=== PATIENT | male | born 1945 | race Caucasian/White ===

== ENCOUNTER → 2017-11-03 10:40 | Outpatient (CLI) | payer MEDICARE, SELFPAY ==
[2017-11-03 13:45] VITALS: BP 133/79; PULSE 74; RESP 16; TEMP 36.4; O2SAT 95; BMI 29.4
--- NOTE | 2017-11-03 13:58 | SDCEKG_ITS ---
Test Reason : Blood Pressure : / mmHG Vent. Rate : 072 BPM Atrial Rate : 072 BPM P-R Int : 166 ms QRS Dur : 108 ms QT Int : 414 ms P-R-T Axes : 018 032 032 degrees QTc Int : 453 ms Normal sinus rhythm Normal ECG Confirmed by GILBERT BAGLEY MD ([id number]), news video editor COLE ANN ([id number]) on 11/05/2017 12:56:32 PM Referred By: Bj Nice Confirmed By:GILBERT BAGLEY MD
--- NOTE | 2017-11-03 14:30 | RAD_ITS ---
STUDY: X-RAY CHEST REASON FOR EXAM: Male, 71 years old. Preoperative evaluation. Dyspnea and shortness of breath. TECHNIQUE: PA and lateral views of the chest. COMPARISON: None. FINDINGS: Hyperinflation. Increased linear markings at the lung bases suggestive of either basilar atelectasis and/or scarring. There is blunting of the left costo phrenic angle. Normal size heart. Normal mediastinum and arnoldo. Normal visualized pulmonary arteries. There is atherosclerotic calcification of the aortic arch with tortuosity. There are diffuse degenerative changes of the visualized thoracic spine. Normal visualized ribs, clavicles, and shoulders. There is no demonstrated abnormality of the visualized soft tissue structures of the upper abdomen. RAD/Chest PA and Lateral IMPRESSION: Hyperinflation. Increased markings at the lung bases suggestive of linear atelectasis and/or scarring with blunting of left costophrenic angle. Electronically Signed: Brody Steiner MD at 14:59 EST Tel [phone], Service support ,
[2017-11-03 14:33] LABS: Hematocrit 46.9 % (40-54); Hemoglobin 15.8 g/dl (13.0-16.5); Mean Corp Hgb Conc 33.7 g/gl (32-36); Mean Corpuscular Hgb 29.4 pg (27.0-32.0); Mean Corpuscular Volume 87.3 fL (80-94); Mean Platelet Vol. 9.1 fl (6.2-12.0); Platelet Count 298 K/mm3 (150-450); RBC Distribution Width CV 13.9 % (11.6-14.6); RBC Distribution Width SD 44.3 fl (35.1-43.9); Red Blood Count 5.37 M/mm3 (4.6-6.2); White Blood Count 7.2 K/mm3 (4.4-11.0)
[2017-11-03 14:34] LABS: Scan Indicated on CBC? Y/N NO
[2017-11-03 14:35] LABS: Prothrombin Time (Protime)PT. 12.6 SECONDS (11.7-14.9)
[2017-11-03 14:43] LABS: AST(SGOT) 13 U/L (15-37); Alanine Aminotransfer ALT/SGPT 23 U/L (16-61); Alkaline Phosphatase 88 U/L (45-117); Anion Gap 10 (5-15); BUN 10 mg/dL (7-18); BUN/Creat Ratio 16.7 RATIO (10-20); Bilirubin, Direct 0.09 mg/dL (0.00-0.30); Calcium,Total 8.8 mg/dL (8.5-10.1); Chloride 97 mmol/L (98-107); EST Glomerular Filtration Rate 141 mL/min (>60); Est Glom Filt Rate - Afr Amer 171 mL/min (>60); Estimated Creatinine Clearance 73.29 ml/min; Globulin 4.1 g/dL (2.2-4.2); Glucose 136 mg/dL (74-106); Potassium 3.8 mmol/L (3.5-5.1); Protein, Total 7.1 g/dL (6.4-8.2); Sodium Level 134 mmol/L (136-145)
[2017-11-03 15:38] LABS: Hemoglobin A1c 7.1 % (4.2-6.3)
--- NOTE | 2017-11-06 11:09 | CASEMGMT ---
SARKIS OSEGUERA called and spoke with patient regarding discharge needs after upcoming surgery. Patient states that his plan is to go to [facility] after surgery but states that his surgery has been postponed due to him having bronchitis at this time. SARKIS OSEGUERA will follow-up with patient when surgery is rescheduled.
== END ==
PROVIDERS: Anesthesiology; Visit Provider Orthopaedic Surgery
DX: Z01.818 Encounter for other preprocedural examination (principal)
CPT/HCPCS: 80048; 80076; 83036; 85027; 85610; 85730; 87081

== ENCOUNTER 2017-12-08 08:54 | Inpatient (IN) | payer MEDICARE, SELFPAY ==
[2017-12-01 14:09] VITALS: BP 126/64; PULSE 71; RESP 16; TEMP 36.6; O2SAT 93; BMI 29.4
[2017-12-01 15:36] LABS: Allen Test POS; Base Excess -2 mmol/L (-2 to +2); Bicarbonate 22.7 mmol/L (22-26); Blood Gas Specimen Type ART; O2 Delivery Device Room Air; PO2 65 mmHG (75-100); SITE L Radial; SO2 93 % (95-99); Time Given 1502; Total Carbon Dioxide 24 mmol/L; pCO2 35.5 mmHg (35-45); pH 7.41 (7.35-7.45)
--- NOTE | 2017-12-01 15:40 | RAD_ITS ---
STUDY: X-RAY CHEST REASON FOR EXAM: Male, 72 years old. Pre-op evaluation prior to left-sided knee surgery. TECHNIQUE: PA and lateral views of the chest. COMPARISON: Chest radiograph dated November 03, 2017. FINDINGS: There is hyperinflation of the lungs consistent with chronic obstructive lung disease (COPD). Small calcifications are visible at the left lung base, similar to the previous study. This may be the result of granulomas. Curvilinear opacities are visible at the right lung base with possible calcified nodule at the right lateral costophrenic angle. There is no demonstrated pleural abnormality. Normal size heart. There are calcified left-sided hilar lymph nodes. Normal visualized pulmonary arteries. There is atherosclerotic calcification of the aortic arch with tortuosity. There is demineralization of the osseous structures. There is multilevel thoracic spondylosis. There has been partial resection of the distal right clavicle. There are degenerative changes of the left shoulder. Deformity of the anterior ribs may be the result of old rib fractures. There is no demonstrated abnormality of the visualized soft tissue structures of the upper abdomen. RAD/Chest PA and Lateral IMPRESSION: COPD without radiographic evidence of acute cardiopulmonary disease. Electronically Signed: Allie Naik MD at 16:53 EDT , Service support ,
[2017-12-08] VITALS (11 sets, daily range): BP systolic 103–124; BP diastolic 54–74; PULSE 61–72; RESP 16–161; TEMP 35.9–36.6; O2SAT 83–97; BMI 29.4
--- NOTE | 2017-12-08 | KNEE_PTH ---
PATIENT: WILLIE TERRY LOC: MS3 U#:[id number] AGE/SX: 72/M ROOM: MS319 RE12/08/[address]: Dr. Martha Foss MD : 1945 BED: 1 DIS: 12/10/2017 SPEC #: [id number] RECD: 12/08/17 14:57 STATUS: JANIS REAdarsh #: [id number] SAUL: 12/08/17 00:[address]: Bj Nice DEPT: SURGICAL PATHOLOGY RECD BY: Valentin Diaz ENTERED: 12/08/17 14:57 SP TYPE: TOTAL KNEE OTHR DR: Out of Town Doctor Tissues: Knee, NOS Procedures: Decalcification bone/plaque Surgery Specimen Level IV HEADER OPERATION: Total knee replacement PRE-OP DIAGNOSIS: Left knee osteoarthritis TISSUE SUBMITTED: Debrided tissue and bone, left knee MICROSCOPIC DIAGNOSIS Bone and soft tissue of left knee, total knee resection: Severe degenerative joint disease. Mild synovial hyperplasia with associated crystalline debris. AM:lisa 12/11/17 MICROSCOPIC DESCRIPTION Slides are reviewed. GROSS DESCRIPTION Received is one container designated debrided tissue and bone left knee. The specimen consists of multiple fragments of huitron-yellow bone measuring in aggregate 13 x 11 x 4 cm. Also in the specimen container are multiple fragments of yellow-white soft tissue measuring in aggregate 6 x 5 x 2 cm. A number of bony fragments contain articular surfaces consistent with tibial plateau and femoral condyle and displaying prominent osteophyte formation, eburnation, and bone erosion. Manager Service Desk sections are submitted in two cassettes as follows: 1 - soft tissue, 2 - bone after decalcification. / SJ:lisa 12/08/17 TC: 5 [facility]: [id number], [id number]
[2017-12-08 10:36] LABS: Bedside Glucose 217 mg/dL (70-110)
--- NOTE | 2017-12-08 11:34 | OP.PN_ITS ---
Immediate Post-Op Note Date of Procedure: 12/08/17 Primary Surgeon/Physician: Bj Nice DO cargo services coordinator: Norma Melo Pre-Operative Diagnosis: left knee oa Post-Operative Diagnosis: same as above Surgery/Procedure Performed:: left tka--james triathhermann Description of Surgical Findings:: seedictation Estimated Blood Loss: 50 Specimen's removed: bone cuts Type of Anesthesia:: Spinal ASA Class: ASA3 Severe Disease - Admit VTE Documentation VTE Present on Admission: No VTE Mechan Device Prophylaxis: SCD's, Knee High [place] Hose VTE Pharm Prophylaxis ordered?: Yes
[2017-12-08] MEDS: Cefazolin 2 GM in 0.9% Normal Saline 100 ML IV (11:35)
--- NOTE | 2017-12-08 13:37 | PCM.OPRPT ---
Report of Operation Date of Procedure: 12/08/17 Pre-Operative Diagnosis: left knee oa Post-Operative Diagnosis: same as above Surgery/Procedure Performed:: left tka--vicenta jimbo Description of Surgical Findings:: 72-year-old male with recalcitrant left knee pain that failed nonoperative management to include NSAIDs activity modifications physical therapy and injections. Patient had tricompartmental arthrosis on plain from radiographs and elected for operative intervention having failed conservative measures. Patient was met in the holding area over the left lower extremity was marked and identified by the with surgeon. Patient was taken the operating room in satisfactory condition with somewhat to place to identify patient operative procedure and limb. Patient received 2 g Ancef and 1 g of TXA. He had a well-placed tourniquet left proximal thigh was then prepped and draped in usual fashion after successful spinal anesthesia. Left lower extremity was elevated Esmarch used for exsanguination and tourniquet was increased to 250 mmHg for roughly 70 minutes. Patient had a standard midline incision with a subsequent medial parapatellar approach. Patient had a large return effusion. Patient had gross tricompartmental arthrosis. At that point time anterior fat pad resection and posterior medial release were undertaken secondary to varus deformity. Due to the patient having a small flexion contracture elected to take 10 mm off the distal femur. The intramedullary guide was introduced we took 10 mm using a 6? valgus cut for our distal femoral cut. Due to the significant thickness of his patella which was roughly 24 mm in overall dimension I elected to resect the patella as well. We took him down to a size 14 patellar thickness. This was done using standard technique. Then turned our attention to the tibia. We set the guide appropriately for a CR component. We took roughly 4 mm off the medial side. Using standard technique. Upon completion the remnant menisci were removed and the posterior lateral and posterior anterior lateral geniculate vessels were cauterized. 9 mm spacer was introduced. With excellent mechanical alignment. We then turned our attention to sizing. The patient sized to a 6 femur. 6 femoral cutting guide was placed in standard cuts were performed. We then placed our trial components using standard technique with a 9 mm spacer. We had no flexion and extension gaps could be appreciated excellent alignment full extension the no mechanical instability at 0 3090? of flexion extension and varus valgus stress. Keel holes were placed for the trial component of the femur. It was retracted. We then seated the tibia using standard technique and also placed our standard keel punch and secondary punch in anticipation of using press-fit components to the excellent bone quality of the patient. At that point time we returned to the patella to confirm overall thickness and alignment. Patient again sized with 38 patella button. Appropriate drill holes were placed. We then copiously irrigated the joint in anticipation of placing our components. The patient was then injected with 50 cc of of the joint cocktail around the yee-articular soft tissues. We subsequently introduced our tibial tray press-fit using standard technique. Press-fit our femoral component again using standard technique. And then subsequent performed cementing technique to the patella. The cement was allowed to cure. During the curing process a 9 mm spacer was introduced and showed again good mechanical alignment. We elected to then see a 9 mm CS Emily using standard technique. After cement curing the wound was copiously irrigated one additional time and then closed in layer technique with the distal two thirds closed with the knee in 30? of knee flexion using kidqps-yd-tisdt technique with #1 Vicryl. The proximal one third closed in full extension. We then closed the subcu tissues with 2-0 Vicryl running subicular Monocryl and Dermabond. Silverlon dressing was placed in 30? of knee flexion. The tourniquet was let down at 70 minutes during final closure. I was scrubbed and reviewed all time during our procedure. There is no drains or complications. Implants included Vicenta triathlon press-fit 6 tibia 6 femur 9 PS Emily and a 38 patella button. Patient be admitted for for 24 hours of IV antibiotics appropriate IV and p.o. pain medication DVT prophylaxis to include SCDs teds and 325 mg of aspirin p.o. twice daily with GI prophylaxis. Any major issues please contact me. corporate safety coordinator: Norma Melo Type of Anesthesia:: Spinal Specimen's removed: bone cuts Estimated Blood Loss (mL): 50 Grafts/Implants Used: Striker triathlon 6, 6, 9 CS, 38 - Complications none - Admit VTE Documentation VTE Present on Admission: No VTE Mechan Device Prophylaxis: SCD's, Knee High NJ Hose VTE Pharm Prophylaxis ordered?: Yes
[2017-12-08 14:06] LABS: Bedside Glucose 166 mg/dL (70-110)
--- NOTE | 2017-12-08 14:17 | RAD_ITS ---
STUDY: X-RAY - LEFT KNEE REASON FOR EXAM: Male, 72 years old. Total knee replacement. TECHNIQUE: AP and lateral view(s) of the knee. COMPARISON: Comparison is made with prior study dated August 10, 2017. FINDINGS: Normal visualized distal femur. Normal visualized proximal tibia and fibula. Normal proximal tibiofibular articulation. The patient is status post total knee replacement. There is good alignment. Postoperative soft tissue changes. RAD/Knee 1 or 2 Views IMPRESSION: Total knee replacement. There is good alignment. Postoperative soft tissue changes. Electronically Signed: Brody Steiner MD at 15:02 EDT Tel [phone], Service support ,
--- NOTE | 2017-12-08 14:50 | CASEMGMT ---
Social Work Note Updated by RN OUMAR Woo - stating that pt's discharge plan was for [facility]. Placed call to Apryl with admissions to update on incoming referral. They will review and notify SW of determination. Will fax PT/OT once documented for pre-cert to be initiated. Initial referral faxed. Plan: SNF pending acceptance and pre-cert. Kristen Metz, CRACKER OFF, TERRAZZO WORKER APPRENTICE
[2017-12-08] MEDS: Lactated Ringers 1,000 ML 75 ML IV (15:36)
--- NOTE | 2017-12-08 16:12 | CASEMGMT ---
Social Work Note Call from Apryl Kumar stating that the pt is out of network. Placed pt on TCU list and will confirm their availability tomorrow and review pt's insurance benefits at that time as he just arrived to the unit after surgery. Will continue to follow and assist with discharge planning. Plan: SNF pending acceptance and pre-cert. Kristen Metz, CAMPGROUND CLEANING ATTENDANT, REINFORCING IRON AND REBAR WORKERS
[2017-12-08] MEDS: Acetaminophen 500 MG Tablet 1000 MG PO ×2 (16:15→21:22)
[2017-12-08] MEDS: metFORMIN HCl 1,000 MG Tablet 1000 MG PO (17:23)
[2017-12-08] MEDS: Aspirin 325 MG Tablet PO (17:26)
--- NOTE | 2017-12-08 18:10 | PCM.CONS.GEN ---
Reason for Consult Date of Consultation: 12/08/17 Reason for Consultation: shortness of breath History of Present Illness: The patient is a 72 year old M who underwent left knee surgery today and is admitted to the hospital for postoperative management. We are asked to see this patient for medical management. The patient has history of COPD but does not use supplemental oxygen at home. He was noted to have pulse oximetry in the 80s despite supplemental oxygen. He denied any chest pain , palpitations, dizziness or rapid heartbeat. Past Medical History Allergies No Known Allergies Allergy (Verified 12/01/17 13:54) Home Medications: Ambulatory Orders Medication Instructions Recorded aspirin 81 mg tablet,delayed 81 mg PO QDAY 10/19/17 release prasugrel 10 mg tablet 10 mg PO QDAY 10/19/17 sitagliptin 50 mg-metformin 1,000 1 tab PO BID 10/19/17 mg tablet Fluticasone/Vilanterol [Breo 1 puff IH DAILY 11/03/17 Ellipta 200-25 Mcg INH] Multivitamin [Multiple Vitamins] 1 each PO DAILY 11/03/17 Pantoprazole Sodium [Protonix] 40 mg PO DAILY 11/03/17 Atorvastatin Calcium [Lipitor] 40 mg PO QHS 12/01/17 Folic Acid 1 mg PO DAILY@0800 12/01/17 Prednisone 5 mg PO DAILY 12/01/17 Sulindac [Clinoril] 200 mg PO BID 12/01/17 Metoprolol Succinate 100 mg PO 12/08/17 Umeclidinium Schulenburg [Incruse 62.5 mcg IH DAILY 12/08/17 Ellipta] Smoking Status: Former smoker Review of Systems Constitutional: Reports: Anorexia, Chills, Fever Comment: All Systems were reviewed with pertinent positives mentioned in the HPI above. - Physical Exam General: Alert, Oriented x3 HEENT: Atraumatic Oral: Moist Mucosa Neck: Supple Cardiovascular: Regular rate Abdomen: Bowel Sounds Present Neurological: Cranial nerves II-XII grossly intact Psych/Mental Status: Normal Affect Vital Signs Temp Pulse Resp BP Pulse Ox 97.8 F 72 16 120/60 97 12/08/17 17:20 12/08/17 17:20 12/08/17 17:20 12/08/17 17:20 12/08/17 17:20 Oxygen Flow Rate (L/min) 4 Oxygen Delivery Method Room Air Weight: 98.5 kg Body Mass Index (BMI) 29.4 Finger Stick Blood Glucose 166 Intake and Output for Last 24 Hours 12/06/17 12/07/17 12/08/17 23:59 23:59 23:59 Intake Total 2386 / 2386 Balance 2386 / 2386 POC Glucose 12/08/17 12/08/17 14:04 09:43 POC Glucose 166 H 217 H Assessment/Plan 1. Hypoxia; continue on supplemental oxygen obtain CT angiogram of the chest. 2. COPD without acute exacerbation; continue bronchodilators. 3. status post left knee surgery; postoperative management per Orthopedic surgeon. 4. DVT prophylaxis with mechanical and pharmacological modalities. Code Visit Inpatient E&M: 22263 Subs Hosp L2
--- NOTE | 2017-12-08 18:11 | CT_ITS ---
STUDY: CTA CHEST REASON FOR EXAM: Male, 72 years old. Hypoxia RADIATION DOSAGE (If Supplied By Facility): CTDIvol = ( 19.99 ) mGy, DLP = ( 717.62 ) mGycm TECHNIQUE: The examination was performed with the intravenous administration of 100 ml of Isovue 370 contrast material. Post-processing of the angiographic images was performed, with multiplanar reformation and 3D reconstruction. Individualized dose optimization techniques were used for this CT. COMPARISON: None. FINDINGS: Normal enhancement of the main pulmonary artery and right and left pulmonary arteries. Normal enhancement of the bilateral peripheral pulmonary arteries. There is no demonstrated pulmonary embolism. Atherosclerotic changes of the aorta without evidence for aneurysm.. There is no demonstrated aortic dissection. Heart is normal size. There is multivessel coronary artery calcification. Normal mediastinum. Normal hilar regions. Normal visualized trachea and bronchi. The lungs are well expanded. Mild diffuse interstitial with paraseptal and centrilobular emphysematous changes.. There is mild bilateral thickening of the bronchial stephens. There is atelectasis within the dependent portion of the lungs. There is also mild subsegmental atelectasis in both lower lobes Normal pleura. Normal chest wall structures. Dorsal spine demonstrates advanced arthritic changes Normal visualized upper abdomen. CT/CTA Chest W/WO Contrast IMPRESSION: Chronic interstitial and emphysematous changes with coexisting ASHD. No evidence for pulmonary embolus Electronically Signed: Ej Matson MD at 19:11 EDT , Service support ,
[2017-12-08] MEDS: Cefazolin 1 GM/50 ML BAG IV (19:40)
--- NOTE | 2017-12-08 20:41 | CPS ---
set up pt own bipap unit with distilled water
[2017-12-08] MEDS: Atorvastatin Calcium 40 MG Tablet PO (21:22)
[2017-12-08] MEDS: Senna/Docusate Sodium 1 Tablet 2 TABLET PO (21:22)
[2017-12-09] VITALS (9 sets, daily range): BP systolic 114–150; BP diastolic 58–83; PULSE 70–77; RESP 16–18; TEMP 36.6–37.1; O2SAT 93–97
--- NOTE | 2017-12-09 04:29 | CPS ---
5 l/m o2 added to pt home bipap unit
[2017-12-09] MEDS: Cefazolin 1 GM/50 ML BAG IV (04:42)
[2017-12-09] MEDS: Acetaminophen 500 MG Tablet 1000 MG PO ×3 (04:44→20:09)
[2017-12-09] MEDS: Ondansetron 4 MG/2 ML Vial IV (05:27)
[2017-12-09] MEDS: 0.9% NaCl Peripheral Flush Adult/Peds IV (05:27)
[2017-12-09 06:28] LABS: Hematocrit 37.8 % (40-54); Hemoglobin 12.3 g/dl (13.0-16.5); Mean Corp Hgb Conc 32.5 g/gl (32-36); Mean Corpuscular Hgb 29.3 pg (27.0-32.0); Platelet Count 194 K/mm3 (150-450); RBC Distribution Width CV 15.1 % (11.6-14.6); RBC Distribution Width SD 49.1 fl (35.1-43.9); White Blood Count 7.8 K/mm3 (4.4-11.0)
[2017-12-09 06:38] LABS: Scan Indicated on CBC? Y/N NO
[2017-12-09 06:54] LABS: Anion Gap 11 (5-15); BUN 13 mg/dL (7-18); BUN/Creat Ratio 14.8 RATIO (10-20); Calcium,Total 7.4 mg/dL (8.5-10.1); Chloride 103 mmol/L (98-107); Creatinine, Serum 0.88 mg/dL (0.70-1.30); EST Glomerular Filtration Rate 90 mL/min (>60); Est Glom Filt Rate - Afr Amer 109 mL/min (>60); Estimated Creatinine Clearance 82.06 ml/min; Glucose 263 mg/dL (74-106); Sodium Level 139 mmol/L (136-145)
[2017-12-09] MEDS: Budesonide Respules 0.5 MG/2 ML AMPUL.NEB. INHALATION (07:06)
[2017-12-09] MEDS: Ipratropium/Albuterol Sulfate 3 ML AMPUL.NEB INHALATION ×2 (07:06→19:29)
[2017-12-09] MEDS: Folic Acid 1 MG Tablet PO (08:57)
[2017-12-09] MEDS: Multivitamins,Therapeutic Tablet 1 TABLET PO (08:57)
[2017-12-09] MEDS: metFORMIN HCl 1,000 MG Tablet 1000 MG PO ×2 (08:57→17:37)
[2017-12-09] MEDS: Aspirin 325 MG Tablet PO ×2 (09:00→17:37)
--- NOTE | 2017-12-09 09:13 | CASEMGMT ---
Social Work Note Face to face with the pt to discuss discharge planning. Introduced self and role at [facility]. The pt reports that he will need placement as his recently had back surgery and cannot care for him. Inform that ultimately insurance will determine whether they will pay or not. Pt expresses interest in [facility]. Inform that [facility] if out of network and pt requests that a referral be sent to [facility] or [facility]. Initial referral faxed. SW to continue to follow and assist with discharge planning. Plan: SNF pending acceptance and pre-cert. Kristen Metz, CREDIT CARD ASSOCIATE, FOOD AND BEVERAGE ASSOCIATE
[2017-12-09] MEDS: HYDROcodone Bitartrate/Apap 5/325 Tablet PO ×2 (09:29→14:05)
[2017-12-09] MEDS: Pantoprazole Sodium 40 MG Tablet PO (10:27)
[2017-12-09] MEDS: LINAGLIPTIN 5 MG TABLET PO (10:28)
[2017-12-09] MEDS: Metoprolol(XL)Succ 100 MG Tablet PO (10:28)
[2017-12-09] MEDS: Famotidine 20 MG Tablet PO (10:32)
[2017-12-09] MEDS: Senna/Docusate Sodium 1 Tablet 2 TABLET PO ×2 (10:33→20:08)
--- NOTE | 2017-12-09 12:12 | CASEMGMT ---
Social Work Note Call placed to Maria De Jesus at [facility]. Referral still under review. SW to continue to follow and assist with discharge planning. Plan: SNF pending acceptance and pre-cert. Kristen Metz, RESIDENTIAL PROPERTY MANAGER, BLOCKER HEATED METAL FORMS
--- NOTE | 2017-12-09 13:24 | PN.ORTHO_ITS ---
Subjective: Postop day 1 status post left total knee arthroplasty. No major issues overnight. Hospitalist team has been consulted secondary to the patient's moderate high risk for surgical intervention and history of COPD. Patient denies any alessandra shortness of breath or chest pain at this point time. Pain is controlled. Patient has been informed that that may change as the day goes on. However I do not want to over sedate him secondary to his pulmonary function and risk exacerbation of COPD and/or pneumonia. - Physical Exam General: Alert, Oriented x3, Cooperative, No apparent distress Musculoskeletal: - - Distally neurovascularly intact. No calf pain negative Homans. SCDs and teds in place. EHL anterior gastrocsoleus peroneals quads hamstrings 5 out of 5. Range of motion 0-90 at this early a.m.. Hardware otherwise well seated well-placed. H&H is stable. Vital signs remained stable. Vital Signs Temp Pulse Resp BP Pulse Ox 98.8 F 72 18 132/71 H 93 12/09/17 09:02 12/09/17 10:28 12/09/17 09:02 12/09/17 10:28 12/09/17 09:04 Oxygen Flow Rate (L/min) 5 Oxygen Delivery Method Nasal Cannula Weight: 217 lb 2.485 oz Body Mass Index (BMI) 29.4 Finger Stick Blood Glucose 166 Intake and Output for Last 24 Hours 12/07/17 12/08/17 12/09/17 23:59 23:59 23:59 Intake Total 2386 / 2386 500 / 500 Balance 2386 / 2386 500 / 500 Laboratory Tests Past 24 Hrs 12/09/17 12/09/17 06:02 06:02 WBC 7.8 RBC 4.20 L Hgb 12.3 L Hct 37.8 L MCV 90.0 MCH 29.3 MCHC 32.5 RDW 15.1 H RDW Differential 49.1 H Plt Count 194 MPV 10.0 Sodium 139 Potassium 4.0 Chloride 103 Carbon Dioxide 25.0 Anion Gap 11 BUN 13 Creatinine 0.88 Estim Creat Clear Calc 82.06 Est GFR (MDRD) Af Amer 109 Est GFR (MDRD) Non-Af 90 BUN/Creatinine Ratio 14.8 Glucose 263 H Calcium 7.4 L POC Glucose 12/08/17 14:04 POC Glucose 166 H Medical Necessity - Tobacco Use Smoking Status: Former smoker Assessment/Plan Assessment: Postop day 1 status post left total knee arthroplasty. History of COPD. Plan: Hospitalist team is comanaging secondary to medical comorbidities. Patient desires to go [facility] for his [facility] facility for rehab. We will go ahead and work on that. Continue with aspirin for DVT prophylaxis. We will continue to monitor at this time. Patient is weightbearing as tolerated. Any major issues please contact me. Anticipate discharge home tomorrow to [facility].
--- NOTE | 2017-12-09 14:20 | CASEMGMT ---
Social Work Note Call from Maria De Jesus with [facility] stating that they ran the benefits and the pt is not in network. Faxed referral to [facility]. Updated Comfort of incoming referral. Will continue to follow and assist with discharge planning. Plan: SNF pending acceptance and pre-cert. Kristen Metz, HARBOR BOAT PILOT, COMPLAINT SUPERVISOR
--- NOTE | 2017-12-09 16:08 | CASEMGMT ---
Social Work Note Call from Comfort at [facility] stating that they can accept and she will initiate pre-cert. Pt updated. Plan: [facility] for rehabilitation. Kristen Metz, PILOT CONTROL OPERATOR HELPER, WEAPONS OFFICER
--- NOTE | 2017-12-09 16:13 | CASEMGMT ---
Social Work Note SW met with patient, introduced self and role at [facility]. SW informed patient that [facility] was out of network with his insurance and unable to accept but that [facility] is in network and is able to accept patient. SW explained that once pre-cert is approved he will be discharged to [facility]. Pt states understanding. Plan: Discharge to [facility] pending approval from pre-cert. Nancy Marcial TURPENTINE FARMER, DIAL POLISHER
[2017-12-09] MEDS: Atorvastatin Calcium 40 MG Tablet PO (20:08)
[2017-12-10] MEDS: HYDROcodone Bitartrate/Apap 5/325 Tablet PO ×2 (01:27→10:54)
[2017-12-10 04:01] VITALS: BP 146/70; PULSE 97; RESP 18; TEMP 36.4; O2SAT 94
[2017-12-10 06:11] LABS: Hematocrit 37.8 % (40-54); Hemoglobin 12.6 g/dl (13.0-16.5); Mean Corp Hgb Conc 33.3 g/gl (32-36); Mean Corpuscular Hgb 29.6 pg (27.0-32.0); Mean Corpuscular Volume 88.9 fL (80-94); Mean Platelet Vol. 9.9 fl (6.2-12.0); Platelet Count 222 K/mm3 (150-450); RBC Distribution Width CV 14.9 % (11.6-14.6); RBC Distribution Width SD 47.8 fl (35.1-43.9); Red Blood Count 4.25 M/mm3 (4.6-6.2); White Blood Count 7.5 K/mm3 (4.4-11.0)
[2017-12-10] MEDS: Acetaminophen 500 MG Tablet 1000 MG PO ×2 (06:20→14:48)
[2017-12-10 06:27] LABS: Anion Gap 5 (5-15); BUN 10 mg/dL (7-18); BUN/Creat Ratio 14.4 RATIO (10-20); Calcium,Total 7.8 mg/dL (8.5-10.1); Chloride 102 mmol/L (98-107); EST Glomerular Filtration Rate 118 mL/min (>60); Est Glom Filt Rate - Afr Amer 143 mL/min (>60); Estimated Creatinine Clearance 72.21 ml/min; Glucose 163 mg/dL (74-106); Potassium 3.9 mmol/L (3.5-5.1); Scan Indicated on CBC? Y/N NO; Sodium Level 137 mmol/L (136-145)
[2017-12-10] MEDS: Ipratropium/Albuterol Sulfate 3 ML AMPUL.NEB INHALATION (06:54)
[2017-12-10] MEDS: Budesonide Respules 0.5 MG/2 ML AMPUL.NEB. INHALATION (06:54)
[2017-12-10 07:00] VITALS: PULSE 75; RESP 18
--- NOTE | 2017-12-10 07:32 | PCM.PN.HOSP ---
Subjective: Late entry note for 12/09/17. Patient was seen and examined. No new complains. Denies fever or chills. Objective: Physical Exam General: Alert, Oriented x3, not pale, or jaundiced, well hydrated HEENT: Atraumatic Oral: Moist Mucosa Neck: Supple Cardiovascular: Regular rate, HS I +II, no murmurs Abdomen: Bowel Sounds Present Neurological: Cranial nerves II-XII grossly intact Psych/Mental Status: Normal Affect Vitals/I&O's: Vital Signs Temp Pulse Resp BP Pulse Ox 97.6 F L 97 18 146/70 H 94 12/10/17 04:01 12/10/17 04:01 12/10/17 04:01 12/10/17 04:01 12/10/17 04:01 Oxygen Flow Rate (L/min) 3 Oxygen Delivery Method CPAP Weight: 98.5 kg Body Mass Index (BMI) 29.4 Finger Stick Blood Glucose 166 Intake and Output for Last 24 Hours 12/08/17 12/09/17 12/10/17 23:59 23:59 23:59 Intake Total 2386 / 2386 1950 / 1950 Output Total 900 / 900 Balance 2386 / 2386 1050 / 1050 Laboratory Results 12/10/17 05:30: WBC 7.5, RBC 4.25 L, Hgb 12.6 L, Hct 37.8 L, MCV 88.9, MCH 29.6, MCHC 33.3, RDW 14.9 H, RDW Differential 47.8 H, Plt Count 222, MPV 9.9 12/10/17 05:30: Sodium 137, Potassium 3.9, Chloride 102, Carbon Dioxide 30.0, Anion Gap 5, BUN 10, Creatinine 0.70, Estim Creat Clear Calc 72.21, Est GFR (MDRD) Af Amer 143, Est GFR (MDRD) Non-Af 118, BUN/Creatinine Ratio 14.4, Glucose 163 H, Calcium 7.8 L Current Medications Acetaminophen (Tylenol) 1,000 mg PO Q8 [facility] Last Admin: 12/10/17 06:20 Dose: 1,000 mg Hydrocodone Bitart/Acetaminophen ([place] 5mg-325mg) 1 - 2 tablet PO Q4H PRN PRN PRN Reason: MODERATE PAIN (4-5/10) Last Admin: 12/10/17 01:27 Dose: 2 tablet Albuterol/Ipratropium (Duoneb) 3 ml INHALATION Q6HWA.RT [facility] Last Admin: 12/10/17 06:54 Dose: 3 ml Asp[facility] ([facility]in) [facility] Last Admin: 12/09/17 17:37 Dose: 325 mg Atorvastatin Calcium (Lipitor) 40 mg PO QHS [facility] Last Admin: 12/09/17 20:08 Dose: 40 mg Budesonide (Pulmicort Aerosol) 0.5 mg INHALATION Q12H.RT [facility] Last Admin: 12/10/17 06:54 Dose: 0.5 mg Famotidine (Pepcid) 20 mg PO DAILY [facility] Last Admin: 12/09/17 10:32 Dose: 20 mg Folic Acid (Folic Acid) 1 mg PO DAILY@0800 [facility] Last Admin: 12/09/17 08:57 Dose: 1 mg Linagliptin (Tradjenta) 5 mg PO DAILY [facility] Last Admin: 12/09/17 10:28 Dose: 5 mg Metformin HCl (Glucophage) [facility] Last Admin: 12/09/17 17:37 Dose: 1,000 mg Metoprolol Succinate (Toprol Xl (Beta Dawit)) 100 mg PO DAILY [facility] Last Admin: 12/09/17 10:28 Dose: 100 mg Morphine Sulfate () 2 - 4 mg IV Q2H PRN PRN PRN Reason: SEVERE PAIN (6-10/10) Last Admin: 12/09/17 01:42 Dose: 2 mg Multivitamins (Multivitamin) 1 [facility] Last Admin: 12/09/17 08:57 Dose: 1 tablet Ondansetron HCl (Zofran) 4 mg IV Q8H PRN PRN PRN Reason: NAUSEA Last Admin: 12/09/17 05:27 Dose: 4 mg Pantoprazole Sodium (Protonix) 40 mg PO DAILY [facility] Last Admin: 12/09/17 10:27 Dose: 40 mg Prasugrel (Effient) 10 mg PO DAILY [facility] Last Admin: 12/09/17 10:27 Dose: 10 mg Promethazine HCl (Phenergan (Ll)) 12.5 mg IM Q6H PRN PRN; Protocol PRN Reason: NAUSEA/VOMITING Senna/Docusate Sodium (Senokot-S, [place]-Colace) 2 tablet PO BID [facility] Last Admin: 12/09/17 20:08 Dose: 2 tablet Sodium Chloride () 5 - 30 ml IV UD PRN PRN Reason: SALINE FLUSH Last Admin: 12/09/17 05:27 Dose: 10 ml Tramadol HCl (Ultram (G)) 50 - 100 mg PO Q6H PRN PRN PRN Reason: MOD-SEVERE PAIN (4-10/10) Last Admin: 12/08/17 19:40 Dose: 50 mg Medical Necessity - Tobacco Use Smoking Status: Former smoker Assessment/Plan 72y/o male with past medical history of COPD who is status post left knee surgery admitted to the floor because of hypoxia. 1. Acute hypoxic respiratory insufficiency, CTA negative for acute PE, continue on oxygen, wean for SpO2 >94%, continue on oxygen. 2. COPD without acute exacerbation, stable, on breathing treatments prn 3. status post left knee surgery, management per postoperative management per Orthopedic surgeon. 4. DM, type 2, on Tradjenta and metformin, BS have been stable, will be following. 5. DVT prophylaxis with mechanical, pharmacological per orthopedics. Code Visit Inpatient E&M: 11286 Subs Hosp L2
[2017-12-10 07:33] VITALS: O2SAT 93
--- NOTE | 2017-12-10 07:42 | PN_ITS ---
Subjective: Late entry note for 12/09/17. Patient was seen and examined. No new complains. Denies fever or chills. Objective: Physical Exam General: Alert, Oriented x3, not pale, or jaundiced, well hydrated HEENT: Atraumatic Oral: Moist Mucosa Neck: Supple Cardiovascular: Regular rate, HS I +II, no murmurs Abdomen: Bowel Sounds Present Neurological: Cranial nerves II-XII grossly intact Psych/Mental Status: Normal Affect Vitals/I&O's: Vital Signs Temp Pulse Resp BP Pulse Ox 97.6 F L 97 18 146/70 H 94 12/10/17 04:01 12/10/17 04:01 12/10/17 04:01 12/10/17 04:01 12/10/17 04:01 Oxygen Flow Rate (L/min) 3 Oxygen Delivery Method CPAP Weight: 98.5 kg Body Mass Index (BMI) 29.4 Finger Stick Blood Glucose 166 Intake and Output for Last 24 Hours 12/08/17 12/09/17 12/10/17 23:59 23:59 23:59 Intake Total 2386 / 2386 1950 / 1950 Output Total 900 / 900 Balance 2386 / 2386 1050 / 1050 Laboratory Results 12/10/17 05:30: WBC 7.5, RBC 4.25 L, Hgb 12.6 L, Hct 37.8 L, MCV 88.9, MCH 29.6 , MCHC 33.3, RDW 14.9 H, RDW Differential 47.8 H, Plt Count 222, MPV 9.9 12/10/17 05:30: Sodium 137, Potassium 3.9, Chloride 102, Carbon Dioxide 30.0, Anion Gap 5, BUN 10, Creatinine 0.70, Estim Creat Clear Calc 72.21, Est GFR ( MDRD) Af Amer 143, Est GFR (MDRD) Non-Af 118, BUN/Creatinine Ratio 14.4, Glucose 163 H, Calcium 7.8 L Current Medications Acetaminophen (Tylenol) 1,000 mg PO Q8 [facility] Last Admin: 12/10/17 06:20 Dose: 1,000 mg Hydrocodone Bitart/Acetaminophen ([place] 5mg-325mg) 1 - 2 tablet PO Q4H PRN PRN PRN Reason: MODERATE PAIN (4-5/10) Last Admin: 12/10/17 01:27 Dose: 2 tablet Albuterol/Ipratropium (Duoneb) 3 ml INHALATION Q6HWA.RT [facility] Last Admin: 12/10/17 06:54 Dose: 3 [facility] Last Admin: 12/09/17 17:37 Dose: 325 mg Atorvastatin Calcium (Lipitor) 40 mg PO QHS [facility] Last Admin: 12/09/17 20:08 Dose: 40 mg Budesonide (Pulmicort Aerosol) 0.5 mg INHALATION Q12H.RT [facility] Last Admin: 12/10/17 06:54 Dose: 0.5 mg Famotidine (Pepcid) 20 mg PO DAILY [facility] Last Admin: 12/09/17 10:32 Dose: 20 mg Folic Acid (Folic Acid) 1 mg PO DAILY@0800 [facility] Last Admin: 12/09/17 08:57 Dose: 1 mg Linagliptin (Tradjenta) 5 mg PO DAILY [facility] Last Admin: 12/09/17 10:28 Dose: 5 mg Metformin HCl (Glucophage) [facility] Last Admin: 12/09/17 17:37 Dose: 1,000 mg Metoprolol Succinate (Toprol Xl (Beta Dawit)) 100 mg PO DAILY [facility] Last Admin: 12/09/17 10:28 Dose: 100 mg Morphine Sulfate () 2 - 4 mg IV Q2H PRN PRN PRN Reason: SEVERE PAIN (6-10/10) Last Admin: 12/09/17 01:42 Dose: 2 mg Multivitamins ([facility]ivitamin) [facility] Last Admin: 12/09/17 08:57 Dose: 1 tablet Ondansetron HCl (Zofran) 4 mg IV Q8H PRN PRN PRN Reason: NAUSEA Last Admin: 12/09/17 05:27 Dose: 4 mg Pantoprazole Sodium (Protonix) 40 mg PO DAILY [facility] Last Admin: 12/09/17 10:27 Dose: 40 mg Prasugrel (Effient) 10 mg PO DAILY [facility] Last Admin: 12/09/17 10:27 Dose: 10 mg Promethazine HCl (Phenergan (Ll)) 12.5 mg IM Q6H PRN PRN; Protocol PRN Reason: NAUSEA/VOMITING Senna/Docusate Sodium (Senokot-S, [place]-Colace) 2 tablet PO BID [facility] Last Admin: 12/09/17 20:08 Dose: 2 tablet Sodium Chloride () 5 - 30 ml IV UD PRN PRN Reason: SALINE FLUSH Last Admin: 12/09/17 05:27 Dose: 10 ml Tramadol HCl (Ultram (G)) 50 - 100 mg PO Q6H PRN PRN PRN Reason: MOD-SEVERE PAIN (4-10/10) Last Admin: 12/08/17 19:40 Dose: 50 mg Medical Necessity - Tobacco Use Smoking Status: Former smoker Assessment/Plan 72y/o male with past medical history of COPD who is status post left knee surgery admitted to the floor because of hypoxia. 1. Acute hypoxic respiratory insufficiency, CTA negative for acute PE, continue on oxygen, wean for SpO2 >94%, continue on oxygen. 2. COPD without acute exacerbation, stable, on breathing treatments prn 3. status post left knee surgery, management per postoperative management per Orthopedic surgeon. 4. DM, type 2, on Tradjenta and metformin, BS have been stable, will be following. 5. DVT prophylaxis with mechanical, pharmacological per orthopedics. Code Visit Inpatient E&M: 49959 Subs Hosp L2
[2017-12-10 08:35] VITALS: BP 103/56; PULSE 83; RESP 16; TEMP 36.7; O2SAT 98
[2017-12-10] MEDS: Aspirin 325 MG Tablet PO (08:46)
[2017-12-10] MEDS: Folic Acid 1 MG Tablet PO (08:46)
[2017-12-10] MEDS: metFORMIN HCl 1,000 MG Tablet 1000 MG PO (08:46)
[2017-12-10] MEDS: Multivitamins,Therapeutic Tablet 1 TABLET PO (08:47)
[2017-12-10 08:48] VITALS: PULSE 83
[2017-12-10] MEDS: LINAGLIPTIN 5 MG TABLET PO (08:48)
[2017-12-10] MEDS: Pantoprazole Sodium 40 MG Tablet PO (08:48)
[2017-12-10] MEDS: Metoprolol(XL)Succ 100 MG Tablet PO (08:48)
[2017-12-10] MEDS: Senna/Docusate Sodium 1 Tablet 2 TABLET PO (08:48)
[2017-12-10] MEDS: Famotidine 20 MG Tablet PO (08:48)
--- NOTE | 2017-12-10 09:24 | PCM.PN.HOSP ---
Subjective: Patient was seen and examined. No acute events overnight. Pain is 4 out of 10. Denies any fever or chills. His oxygen requirements have been down from 6 L to 2 L. Been using his CPAP at night. Objective: Physical Exam General: Alert, Oriented x3, not pale, or jaundiced, well hydrated, on 2L intranasal oxygen. HEENT: Atraumatic Oral: Moist Mucosa Neck: Supple Cardiovascular: HS I +II, regular, no murmurs Abdomen: Bowel Sounds Present, no palpable organs, no hepatosplenomegaly. Neurological: Cranial nerves II-XII grossly intact Psych/Mental Status: Normal Affect Vitals/I&O's: Vital Signs Temp Pulse Resp BP Pulse Ox 98.1 F 83 16 103/56 L 98 12/10/17 08:35 12/10/17 08:48 12/10/17 08:35 12/10/17 08:35 12/10/17 08:35 Oxygen Flow Rate (L/min) 1 Oxygen Delivery Method Nasal Cannula Weight: 98.5 kg Body Mass Index (BMI) 29.4 Finger Stick Blood Glucose 166 Intake and Output for Last 24 Hours 12/08/17 12/09/17 12/10/17 23:59 23:59 23:59 Intake Total 2386 / 2386 1950 / 1950 Output Total 900 / 900 Balance 2386 / 2386 1050 / 1050 Laboratory Results 12/10/17 05:30: WBC 7.5, RBC 4.25 L, Hgb 12.6 L, Hct 37.8 L, MCV 88.9, MCH 29.6, MCHC 33.3, RDW 14.9 H, RDW Differential 47.8 H, Plt Count 222, MPV 9.9 12/10/17 05:30: Sodium 137, Potassium 3.9, Chloride 102, Carbon Dioxide 30.0, Anion Gap 5, BUN 10, Creatinine 0.70, Estim Creat Clear Calc 72.21, Est GFR (MDRD) Af Amer 143, Est GFR (MDRD) Non-Af 118, BUN/Creatinine Ratio 14.4, Glucose 163 H, Calcium 7.8 L Current Medications Acetaminophen (Tylenol) 1,000 mg PO Q8 [facility] Last Admin: 12/10/17 06:20 Dose: 1,000 mg Hydrocodone Bitart/Acetaminophen ([place] 5mg-325mg) 1 - 2 tablet PO Q4H PRN PRN PRN Reason: MODERATE PAIN (4-5/10) Last Admin: 12/10/17 01:27 Dose: 2 tablet Albuterol/Ipratropium (Duoneb) 3 ml INHALATION Q6HWA.RT [facility] Last Admin: 12/10/17 06:54 Dose: 3 ml [facility]) [facility] Last Admin: 12/10/17 08:46 Dose: 325 mg Atorvastatin Calcium (Lipitor) 40 mg PO QHS [facility] Last Admin: 12/09/17 20:08 Dose: 40 mg Budesonide (Pulmicort Aerosol) 0.5 mg INHALATION Q12H.RT [facility] Last Admin: 12/10/17 06:54 Dose: 0.5 mg Famotidine (Pepcid) 20 mg PO DAILY [facility] Last Admin: 12/10/17 08:48 Dose: 20 mg Folic Acid (Folic Acid) 1 mg PO DAILY@0800 [facility] Last Admin: 12/10/17 08:46 Dose: 1 mg Linagliptin (Tradjenta) 5 mg PO DAILY [facility] Last Admin: 12/10/17 08:48 Dose: 5 mg Metformin HCl (Glucophage) [facility] Last Admin: 12/10/17 08:46 Dose: 1,000 mg Metoprolol Succinate (Toprol Xl (Beta Dawit)) 100 mg PO DAILY [facility] Last Admin: 12/10/17 08:48 Dose: 100 mg Morphine Sulfate () 2 - 4 mg IV Q2H PRN PRN PRN Reason: SEVERE PAIN (6-10/10) Last Admin: 12/09/17 01:42 Dose: 2 mg Multivitamins (Multivitamin) [facility] Last Admin: 12/10/17 08:47 Dose: 1 tablet Ondansetron HCl (Zofran) 4 mg IV Q8H PRN PRN PRN Reason: NAUSEA Last Admin: 12/09/17 05:27 Dose: 4 mg Pantoprazole Sodium (Protonix) 40 mg PO DAILY [facility] Last Admin: 12/10/17 08:48 Dose: 40 mg Prasugrel (Effient) 10 mg PO DAILY [facility] Last Admin: 12/10/17 08:47 Dose: 10 mg Promethazine HCl (Phenergan (Ll)) 12.5 mg IM Q6H PRN PRN; Protocol PRN Reason: NAUSEA/VOMITING Senna/Docusate Sodium (Senokot-S, [place]-Colace) 2 tablet PO BID [facility] Last Admin: 12/10/17 08:48 Dose: 2 tablet Sodium Chloride () 5 - 30 ml IV UD PRN PRN Reason: SALINE FLUSH Last Admin: 12/09/17 05:27 Dose: 10 ml Tramadol HCl (Ultram (G)) 50 - 100 mg PO Q6H PRN PRN PRN Reason: MOD-SEVERE PAIN (4-10/10) Last Admin: 12/08/17 19:40 Dose: 50 mg Medical Necessity - Tobacco Use Smoking Status: Former smoker Assessment/Plan 72-year-old male with past medical history of hypertension, DM type II, hyperlipidemia, CAD status post stents, COPD, not on home oxygen, postop day 2 status post left knee replacement. Patient was found to be hypoxic postoperatively. 1. Acute hypoxic respiratory insufficiency, improving, 2 L down from 6 L of oxygen, likely etiologies related to patient's COPD with pulmonary hypertension from BETTE. Patient was hypoxic in preoperative testing but was cleared by his unscrambler. CTA negative for acute PE, continue on oxygen, wean for SpO2 >94%. Encourage use of incentive spirometer. 2. COPD without acute exacerbation, stable, on breathing treatments prn, off prednisone for now to aid in wound healing, Pulmicort and 3. Status post left knee surgery, POD #2, management per postoperative management per Orthopedic surgeon. Pain is controlled on [place] and tramadol. 4. DM, type 2, on Tradjenta and metformin, BS have been stable, 5. BETTE on CPAP 6. CAD Status post stents, aspirin, prasugrel, statin, beta-dawit 7. Hyperlipidemia on statin 8. DVT prophylaxis with mechanical, pharmacological per orthopedics. 9. Disposition: [facility] is ready. Code Visit Inpatient E&M: 78767 Subs Hosp L2
--- NOTE | 2017-12-10 09:27 | PCM.PN.ORT ---
Subjective: Postop day 2 status post left total knee arthroplasty. Overall patient is doing well. States he has knee pain but otherwise appears to be tolerating it well. Currently sitting upright in chair having breakfast. Knee is currently bent to about 75? which he tolerates without issue. Patient is made the knee flexion down to 90?. Patient is being followed by the medical team or make an attempt to adjust oxygen levels this time. Otherwise really medically is doing well. - Physical Exam General: Alert, Oriented x3, Cooperative, No apparent distress Musculoskeletal: - - Distally neurovascular intact. No calf pain negative Homans. Range of motion 0-75 at this point time. I was able to push him to closer to 85-90 prior to PT. Lab values remain stable. Vital signs remained stable. Conversive does not appear to be straining to speak. Nasal cannula in place at this time. Vital Signs Temp Pulse Resp BP Pulse Ox 98.1 F 83 16 103/56 L 98 12/10/17 08:35 12/10/17 08:48 12/10/17 08:35 12/10/17 08:35 12/10/17 08:35 Oxygen Flow Rate (L/min) 1 Oxygen Delivery Method Nasal Cannula Weight: 217 lb 2.485 oz Body Mass Index (BMI) 29.4 Finger Stick Blood Glucose 166 Intake and Output for Last 24 Hours 12/08/17 12/09/17 12/10/17 23:59 23:59 23:59 Intake Total 2386 / 2386 1950 / 1950 Output Total 900 / 900 Balance 2386 / 2386 1050 / 1050 Laboratory Tests Past 24 Hrs 12/10/17 12/10/17 05:30 05:30 WBC 7.5 RBC 4.25 L Hgb 12.6 L Hct 37.8 L MCV 88.9 MCH 29.6 MCHC 33.3 RDW 14.9 H RDW Differential 47.8 H Plt Count 222 MPV 9.9 Sodium 137 Potassium 3.9 Chloride 102 Carbon Dioxide 30.0 Anion Gap 5 BUN 10 Creatinine 0.70 Estim Creat Clear Calc 72.21 Est GFR (MDRD) Af Amer 143 Est GFR (MDRD) Non-Af 118 BUN/Creatinine Ratio 14.4 Glucose 163 H Calcium 7.8 L Medical Necessity - Tobacco Use Smoking Status: Former smoker Assessment/Plan Assessment: Postop day 2 status post left total knee arthroplasty doing well. History of COPD. Plan: At this point time await approval for transfer to nursing home facility for rehab. Patient continues to be monitored by the medical team which I appreciate. All of his discharge information has been placed the chart to include his outgoing medications. Anticipate discharge tomorrow unless patient is medically cleared today and the approval for his nursing home facility has come through. I will be out of town later today but I will make my partner aware of the patient's inpatient status. However all the other information for discharge is completed. Really just waiting for approval and medical clearance. Patient will follow with me in 2 weeks. Any major issues please contact.
--- NOTE | 2017-12-10 09:30 | PCM.DC.ORTHO ---
Discharge Activity: Return to Normal Activity, May not drive while taking narcotic pain medications., May Shower, Use Walker May shower in (days): 1 May resume sexual activity in: No Restrictions Ice area for (Minutes): 20 Weight Bearing Status: Weight bearing as tolerated Keep extremity elevated above heart level: Left Leg Call your doctor if your incision/area has: Continuous Slow Oozing, Sudden Increased Bleeding, Increased Pain/ Swelling, Increased Redness, Foul Smelling Discharge, Swelling at the incision site Call your doctor if you observe: Fever of 101 or Higher, Coldness, Increased Pain, Numbness or Tingling, Change in Color, Inability to urinate, Inability to have a bowel movement, Using more than one pad per hour, Shortness of breath, Dizziness, Fainting spells, Swelling in the ankles, Chest pain, Prolonged hiccoughing, Increased palpitations (irregular heartbeat), Calf discomfort, Uncontrolled pain Suture Line Care: Avoid Pulling/Pushing, Avoid Pinching/Bending Change Dressing in (Days):: 5 Remove Dressing in (days):: 5 Cleanse incision/area with: Soap & Water Additional Dressing/Incision Instructions:: Dressing stays on for 5-7 total days from date of operation. Patient may shower but do not submerge wound. If signs of blister formation to the edge of the dressing it can be removed early. Treat blister formations with simple triple ointment or bacitracin. Wash hands prior to touching wound. Allergies/Adverse Reactions: Allergies No Known Allergies Allergy (Verified 12/01/17 13:54) Medications to take at Discharge prasugrel 10 mg tablet 10 mg PO QDAY 10/19/17 sitagliptin 50 mg-metformin 1,000 mg tablet 1 tab PO BID 10/19/17 Fluticasone/Vilanterol [Breo Ellipta 200-25 Mcg INH] 1 puff IH DAILY 11/03/17 Multivitamin [Multiple Vitamins] 1 each PO DAILY 11/03/17 Pantoprazole Sodium [Protonix] 40 mg PO DAILY 11/03/17 Atorvastatin Calcium [Lipitor] 40 mg PO QHS 12/01/17 Folic Acid 1 mg PO DAILY@0800 12/01/17 Sulindac [Clinoril] 200 mg PO BID 12/01/17 Metoprolol Succinate 100 mg PO 12/08/17 Umeclidinium [place] [Incruse Ellipta] 62.5 mcg IH DAILY 12/08/17 Aspirin E.C. [Ecotrin] 325 mg PO BID #30 tab 12/10/17 Docusate Sodium [Colace] 100 mg PO BID PRN PRN #10 cap 12/10/17 Famotidine [Pepcid] 20 mg PO BID #30 tab 12/10/17 Oxycodone HCl/Acetaminophen [Percocet 5/325] 1 - 2 tab PO Q4H PRN PRN #60 tab 12/10/17 proMETHazine tablet [Phenergan] 25 mg PO Q4H PRN PRN #10 tab 12/10/17 The following prescriptions were given: Oxycodone HCl/Acetaminophen [Percocet 5/325] 1 - 2 tab PO Q4H PRN PRN #60 tab PRN Reason: Pain proMETHazine tablet [Phenergan] 25 mg PO Q4H PRN PRN #10 tab PRN Reason: Nausea Docusate Sodium [Colace] 100 mg PO BID PRN PRN #10 cap PRN Reason: Constipation Aspirin E.C. [Ecotrin] 325 mg PO BID #30 tab Famotidine [Pepcid] 20 mg PO BID #30 tab Primary Care Physician: Sergei Lama,Out of [Primary Care Provider] - Please Follow Up With: Bj Nice DO When: call [facility] for appt for 2 weeks Proposed Discharge Date: 12/11/17
--- NOTE | 2017-12-10 09:31 | PN_ITS ---
Subjective: Patient was seen and examined. No acute events overnight. Pain is 4 out of 10. Denies any fever or chills. His oxygen requirements have been down from 6 L to 2 L. Been using his CPAP at night. Objective: Physical Exam General: Alert, Oriented x3, not pale, or jaundiced, well hydrated, on 2L intranasal oxygen. HEENT: Atraumatic Oral: Moist Mucosa Neck: Supple Cardiovascular: HS I +II, regular, no murmurs Abdomen: Bowel Sounds Present, no palpable organs, no hepatosplenomegaly. Neurological: Cranial nerves II-XII grossly intact Psych/Mental Status: Normal Affect Vitals/I&O's: Vital Signs Temp Pulse Resp BP Pulse Ox 98.1 F 83 16 103/56 L 98 12/10/17 08:35 12/10/17 08:48 12/10/17 08:35 12/10/17 08:35 12/10/17 08:35 Oxygen Flow Rate (L/min) 1 Oxygen Delivery Method Nasal Cannula Weight: 98.5 kg Body Mass Index (BMI) 29.4 Finger Stick Blood Glucose 166 Intake and Output for Last 24 Hours 12/08/17 12/09/17 12/10/17 23:59 23:59 23:59 Intake Total 2386 / 2386 1950 / 1950 Output Total 900 / 900 Balance 2386 / 2386 1050 / 1050 Laboratory Results 12/10/17 05:30: WBC 7.5, RBC 4.25 L, Hgb 12.6 L, Hct 37.8 L, MCV 88.9, MCH 29.6 , MCHC 33.3, RDW 14.9 H, RDW Differential 47.8 H, Plt Count 222, MPV 9.9 12/10/17 05:30: Sodium 137, Potassium 3.9, Chloride 102, Carbon Dioxide 30.0, Anion Gap 5, BUN 10, Creatinine 0.70, Estim Creat Clear Calc 72.21, Est GFR ( MDRD) Af Amer 143, Est GFR (MDRD) Non-Af 118, BUN/Creatinine Ratio 14.4, Glucose 163 H, Calcium 7.8 L Current Medications Acetaminophen (Tylenol) 1,000 mg PO Q8 [facility] Last Admin: 12/10/17 06:20 Dose: 1,000 mg Hydrocodone Bitart/Acetaminophen ([place] 5mg-325mg) 1 - 2 tablet PO Q4H PRN PRN PRN Reason: MODERATE PAIN (4-5/10) Last Admin: 12/10/17 01:27 Dose: 2 tablet Albuterol/Ipratropium (Duoneb) 3 ml INHALATION Q6HWA.RT [facility] Last Admin: 12/10/17 06:54 Dose: 3 ml [facility] Last Admin: 12/10/17 08:46 Dose: 325 mg Atorvastatin Calcium (Lipitor) 40 mg PO QHS [facility] Last Admin: 12/09/17 20:08 Dose: 40 mg Budesonide (Pulmicort Aerosol) 0.5 mg INHALATION Q12H.RT [facility] Last Admin: 12/10/17 06:54 Dose: 0.5 mg Famotidine (Pepcid) 20 mg PO DAILY [facility] Last Admin: 12/10/17 08:48 Dose: 20 mg Folic Acid (Folic Acid) 1 mg PO DAILY@0800 [facility] Last Admin: 12/10/17 08:46 Dose: 1 mg Linagliptin (Tradjenta) 5 mg PO DAILY [facility] Last Admin: 12/10/17 08:48 Dose: 5 mg Metformin HCl (Glucophage) [facility] Last Admin: 12/10/17 08:46 Dose: 1,000 mg Metoprolol Succinate (Toprol Xl (Beta Dawit)) 100 mg PO DAILY [facility] Last Admin: 12/10/17 08:48 Dose: 100 mg Morphine Sulfate () 2 - 4 mg IV Q2H PRN PRN PRN Reason: SEVERE PAIN (6-10/10) Last Admin: 12/09/17 01:42 Dose: 2 mg Multivitamins (Multivitamin) [facility] Last Admin: 12/10/17 08:47 Dose: 1 tablet Ondansetron HCl (Zofran) 4 mg IV Q8H PRN PRN PRN Reason: NAUSEA Last Admin: 12/09/17 05:27 Dose: 4 mg Pantoprazole Sodium (Protonix) 40 mg PO DAILY [facility] Last Admin: 12/10/17 08:48 Dose: 40 mg Prasugrel (Effient) 10 mg PO DAILY [facility] Last Admin: 12/10/17 08:47 Dose: 10 mg Promethazine HCl (Phenergan (Ll)) 12.5 mg IM Q6H PRN PRN; Protocol PRN Reason: NAUSEA/VOMITING Senna/Docusate Sodium (Senokot-S, [place]-Colace) 2 tablet PO BID [facility] Last Admin: 12/10/17 08:48 Dose: 2 tablet Sodium Chloride () 5 - 30 ml IV UD PRN PRN Reason: SALINE FLUSH Last Admin: 12/09/17 05:27 Dose: 10 ml Tramadol HCl (Ultram (G)) 50 - 100 mg PO Q6H PRN PRN PRN Reason: MOD-SEVERE PAIN (4-10/10) Last Admin: 12/08/17 19:40 Dose: 50 mg Medical Necessity - Tobacco Use Smoking Status: Former smoker Assessment/Plan 72-year-old male with past medical history of hypertension, DM type II, hyperlipidemia, CAD status post stents, COPD, not on home oxygen, postop day 2 status post left knee replacement. Patient was found to be hypoxic postoperatively. 1. Acute hypoxic respiratory insufficiency, improving, 2 L down from 6 L of oxygen, likely etiologies related to patient's COPD with pulmonary hypertension from BETTE. Patient was hypoxic in preoperative testing but was cleared by his oncology account specialist. CTA negative for acute PE, continue on oxygen, wean for SpO2 >94 %. Encourage use of incentive spirometer. 2. COPD without acute exacerbation, stable, on breathing treatments prn, off prednisone for now to aid in wound healing, Pulmicort and 3. Status post left knee surgery, POD #2, management per postoperative management per Orthopedic surgeon. Pain is controlled on [place] and tramadol. 4. DM, type 2, on Tradjenta and metformin, BS have been stable, 5. BETTE on CPAP 6. CAD Status post stents, aspirin, prasugrel, statin, beta-dawit 7. Hyperlipidemia on statin 8. DVT prophylaxis with mechanical, pharmacological per orthopedics. 9. Disposition: [facility] when [facility] is ready. Code Visit Inpatient E&M: 60370 Subs Hosp L2
--- NOTE | 2017-12-10 10:38 | CASEMGMT ---
Social Work Note F[facility]ed updated [facility] to [facility] confirmed pre-cert has not yet been obtained. Plan: [facility] pending pre-cert. Kristen Metz, GALLEY WORKER, BIZTALK ARCHITECT
[2017-12-10 14:37] VITALS: BP 113/67; PULSE 75; RESP 16; TEMP 36.6; O2SAT 95
--- NOTE | 2017-12-10 14:55 | CASEMGMT ---
Social Work Note [facility]000 submitted in the [facility]. Copies on chart and in SNF packet. Transfer summary, medlist and scripts faxed to SNF. Copies on chart and originals in SNF packet. Confirm with pt and that they would like transport setup and this will be a private cost. Transport setup through [facility] via [facility] at 1700. SNF, RN and pt of discharge time. Plan: [facility] for [facility]. Kristen Metz, CALL CENTER OPERATIONS MANAGER, WARP TESTER
--- NOTE | 2017-12-15 10:02 | DS.PCM_ITS ---
Discharge Summary Date of Admission: 12/08/17 Date of Discharge: 12/10/17 Summary: [age]-year-old male who was admitted to the floor status post left total knee arthroplasty. Patient admitted floor for 24 hours of IV antibiotics appropriate IV and p.o. pain medication and DVT prophylaxis to include SCDs teds and 325 p.o. twice daily of aspirin with GI prophylaxis. Patient has multiple medical history was subsequent evaluated by the hospitalist team to make sure that his pulmonary function was maintained. They monitored him clinically. Patient maintained his saturation was felt to be stable for discharge to a custodial facility for subsequent rehab. Assessment: After orthopedics status post left total knee arthroplasty for osteoarthritis. COPD. Plan: At this point time patient be discharged to a skilled nurse facility for rehab. Patient will maintain GI DVT prophylaxis for 2 weeks with 325 mg p.o. twice daily and GI prophylaxis for DVT control. Patient will also use [place] hose. Aggressive range of motion is requested. Patient is weightbearing as tolerated. Patient will continue with his outpatient medications for his COPD. Patient will follow me in 2 weeks for wound check. Any major issues please contact me.
== END 2017-12-10 17:20 | disposition skilled nursing facility (03) | DRG 470 ==
LOC: ACINP 08:59 → MS3 10:03
PROVIDERS: Admitting Provider Orthopaedic Surgery; Visit Provider Internal Medicine
PROC: 0SRD0J9 Replacement of Left Knee Joint with Synthetic Substitute, Cemented, Open Approach (ICD-10-PCS; CPT 27447; principal; 2017-12-08 10:35)
DX: M17.12 Unilateral primary osteoarthritis, left knee (principal); J44.9 Chronic obstructive pulmonary disease, unspecified; E11.9 Type 2 diabetes mellitus without complications; Z87.891 Personal history of nicotine dependence; R09.02 Hypoxemia; Z79.84 Long term (current) use of oral hypoglycemic drugs; G47.33 Obstructive sleep apnea (adult) (pediatric); I25.10 Atherosclerotic heart disease of native coronary artery without angina pectoris; Z95.5 Presence of coronary angioplasty implant and graft; E78.5 Hyperlipidemia, unspecified
CPT/HCPCS: 36415; 36600; 71275; 73560; 80048; 82803; 82962; 85027; 88305; 88311; 94640; 94762; 97110; 97116; 97162; 97166; 97530; 97535; 99251; J7120; Q9967; A4216; G0463; J2405

== ENCOUNTER → 2018-01-20 12:43 | Outpatient (CLI) | payer MEDICARE, SELFPAY ==
--- NOTE | 2018-01-20 12:47 | RAD_ITS ---
STUDY: X-RAY - LEFT KNEE REASON FOR EXAM: Follow-up knee arthroplasty. TECHNIQUE: 4 view(s) of the knee. COMPARISON: Radiographs 12/08/2017. FINDINGS: There is a total knee arthroplasty without evidence of complication. There is a joint effusion and soft tissue swelling. There is vascular calcification. RAD/Knee 4 or More Views IMPRESSION: No demonstrated abnormality of the left total knee arthroplasty. Joint effusion. Electronically Signed: Mumtaz Gutierrez MD at 13:39 EDT Tel , Service support ,
== END ==
PROVIDERS: Visit Provider Orthopaedic Surgery
DX: M25.562 Pain in left knee (principal)
CPT/HCPCS: 73564

== ENCOUNTER → 2018-06-10 12:35 | Outpatient (CLI) | payer MEDICARE, SELFPAY ==
--- NOTE | 2018-06-10 12:37 | RAD_ITS ---
STUDY: X-RAY - LEFT KNEE REASON FOR EXAM: Male, 72 years old. Follow-up after total knee arthroplasty. TECHNIQUE: 4 view(s) of the knee. COMPARISON: January 20, 2018 FINDINGS: There is stable generalized osteopenia. There is a stable 3 component total knee arthroplasty with no complications identified. There is a joint effusion. RAD/Knee 4 or More Views IMPRESSION: Stable osteopenia with uncomplicated 3 component total knee arthroplasty. Electronically Signed: Obed Mahan MD at 18:18 EDT , Service support ,
== END ==
PROVIDERS: Referring Provider Orthopaedic Surgery; Visit Provider Orthopaedic Surgery
DX: M25.562 Pain in left knee (principal)
CPT/HCPCS: 73564

== ENCOUNTER → 2019-10-07 09:56 | Outpatient (CLI) | payer MEDICARE, SELFPAY ==
--- NOTE | 2019-10-07 09:57 | RAD_ITS ---
STUDY: X-RAY - LEFT KNEE REASON FOR EXAM: Male, 73 years old. KNEE PAIN TECHNIQUE: 4 view(s) of the knee. COMPARISON: June 10, 2018 FINDINGS: Normal visualized distal femur. Normal visualized proximal tibia and fibula. Normal proximal tibiofibular articulation. Total knee arthroplasty unchanged. Normal medial femorotibial compartment. Normal lateral femorotibial compartment. Normal patellofemoral articulation. The soft tissue structures are unremarkable. RAD/Knee 4 or More Views IMPRESSION: No change total knee arthroplasty. No acute disease. Electronically Signed: Mathew Dietz MD at 0:02 EST , Service support ,
== END ==
PROVIDERS: Referring Provider Orthopaedic Surgery; Visit Provider Orthopaedic Surgery
DX: T84.84XA Pain due to internal orthopedic prosthetic devices, implants and grafts, initial encounter (principal); Z96.652 Presence of left artificial knee joint
CPT/HCPCS: 73564